=== PATIENT | male | born 1985 | race Caucasian/White ===

== ENCOUNTER 2019-03-30 08:48 | Inpatient (IN) | payer MEDICAID ==
[~2019-03-30] VITALS: Ht 175.3 cm; Wt 98.9 kg
--- NOTE | 2019-03-30 08:50 | NUR ---
PT BIBRA 89 FROM HOME C/O HEADACHE, CONFUSION, AND NEAT SYNCOPE, PER PT LAST KNOWN WELL IS AROUND 8AM, PT IS AAOX4, NOT IN RESPIRATORY DISTRESS ,HOOKED TO MONITOR, KEPT RESTED AND COMFORTABLE, WILL CONTINUE TO MONITOR.
--- NOTE | 2019-03-30 08:52 | NUR ---
AT BEDSIDE FOR EVAL.
[2019-03-30] MEDS ORDERED: IV NS 0.9% 1,000 ML BAG IV ONE ×2 (09:00→11:00)
--- NOTE | 2019-03-30 09:00 | NUR ---
PT IV LINE ESTABLISHED, BLOOD DRAWN AND SENT TO LAB.
--- NOTE | 2019-03-30 09:01 | NUR ---
wheeled patient to ct
[2019-03-30] MEDS ORDERED: IOHEXOL-350 100 ML VIAL IV ONE (09:02)
[2019-03-30 09:05] LABS: BASOPHILS % (AUTO) 0.8 % (0.0-2.0); EOSINOPHILS % (AUTO) 1.1 % (0.0-6.0); HEMATOCRIT 46 % (39-51); HEMOGLOBIN 15.5 g/dL (13.5-17.5); LYMPHOCYTES # (AUTO) 0.4 /CMM (0.8-4.8); LYMPHOCYTES % (AUTO) 7.4 % (20.0-44.0); MEAN CORPUSCULAR HGB CONC 34 g/dl (31.0-36.0); MEAN CORPUSCULAR VOLUME 86 fL (80-96); MONOCYTES # (AUTO) 1.3 /CMM (0.1-1.30); MONOCYTES % (AUTO) 24.7 % (2.0-12.0); NEUTROPHILS # (AUTO) 3.5 /CMM (1.8-8.9); PLATELET COUNT (AUTO) 169 /CMM (150-450); RED BLOOD CELL COUNT(AUTO) 5.31 MIL/uL (4.5-6.0); WHITE BLOOD COUNT (AUTO) 5.4 K/uL (4.3-11.0)
--- NOTE | 2019-03-30 09:08 | NUR ---
RECEIVED A CALL FROM DR. ORTEGA NEUROLOGIST
[2019-03-30 09:11] LABS: CALCIUM, SERUM 9.4 mg/dL (8.5-10.1); CARBON DIOXIDE 26 mmol/L (21-32); CHLORIDE 98 mmol/L (98-107); CREATININE 1.1 mg/dL (0.6-1.3); GLUCOSE 112 mg/dL (74-106); POTASSIUM 4.1 mmol/L (3.5-5.1); SODIUM SERUM 135 mmol/L (136-145); UREA NITROGEN, BLOOD 13 mg/dL (7-18)
[2019-03-30 09:27] LABS: BAND % (MANUAL) 2 % (0.0-5.0); LYMPHOCYTES % (MANUAL) 7 % (16-48); MONOCYTES % (MANUAL) 27 % (0-11.0); NEUTROPHILS % (MANUAL) 64 (42-76)
[2019-03-30 09:30] LABS: CHOLESTEROL 269 mg/dL (<200); HDL CHOLESTEROL 41 mg/dL (40-60); LDL 185 mg/dL (0-99); TRIGLYCERIDES 170 mg/dL (30-150)
--- NOTE | 2019-03-30 09:35 | NUR ---
PT IS BACK FROM THE CT SCAN.
--- NOTE | 2019-03-30 09:35 | NUR ---
TELE NEURO AT BEDSIDE FOR EVAL.
[2019-03-30] MEDS ORDERED: METOCLOPRAMIDE HCL 10 MG/2 ML VIAL ONE (10:38)
[2019-03-30] MEDS ORDERED: ASPIRIN 325 MG TABLET ONE (10:38)
[2019-03-30] MEDS ORDERED: ASPIRIN 325 MG TABLET PO ONE (11:00)
[2019-03-30] MEDS ORDERED: METOCLOPRAMIDE HCL 10 MG/2 ML VIAL IV ONE (11:00)
[2019-03-30] MEDS ORDERED: BUTA1CAP46 PO (11:48)
[2019-03-30] MEDS ORDERED: AMIT25TA9 PO (11:48)
--- NOTE | 2019-03-30 12:34 | NUR ---
MOVE SHEET SUBMITTED. CALLED FOR TELE BED.
--- NOTE | 2019-03-30 13:36 | NUR ---
REPORT GIVEN TO OFE MCCLURE FOR KATARZYNA.
--- NOTE | 2019-03-30 13:55 | NUR ---
Tele/RN new admission Patient arrived room 328-2 by amauri with staff from reported by Jeff THAKUR. patient AO x 4, able to response all stimuli. Admitting Dx: CVA, patient able to move all extremities without pain or difficulty, symmetrical facial movement. Skin is warm to touch, intact IV site. Resp. even and unlabored in room air. Call light within reach, will continue to monitor. Addendum: 03/30/19 at 1746 by KAMI LAWRENCE RN Error
--- NOTE | 2019-03-30 13:55 | NUR ---
Tele/RN new admission Patient arrived room 328-2 on [facility] with staff from ER, report received by ER/Axi RN. patient AO x 4, able to response all stimuli. Admitting Dx: CVA, patient able to move all extremities without pain or difficulty, symmetrical facial movement. Skin is warm to touch, intact IV site. Resp. even and unlabored in room air. Call light within reach, will continue to monitor.
[2019-03-30] MEDS ORDERED: MAGNESIUM HYDROXIDE 30 ML UDC PO PRN (14:30)
[2019-03-30] MEDS ORDERED: ACETAMINOPHEN 325 MG TABLET PO PRN (14:30)
[2019-03-30] MEDS ORDERED: ONDANSETRON HCL/PF 4 MG/2 ML VIAL IVP PRN (14:30)
[2019-03-30] MEDS ORDERED: ZOLPIDEM TARTRATE 5 MG TABLET PO PRN (14:30)
[2019-03-30] MEDS ORDERED: MAG HYDROX/AL HYDROX/SIMETH 30 ML UDC PO PRN (14:30)
[2019-03-30] MEDS ORDERED: Z GUARD REMEDY 2 OZ OINT TP PRN (14:30)
[2019-03-30] MEDS: IV NS 0.9% 1,000 ML IV PRN (15:08)
[2019-03-30] MEDS: HYDROMORPHONE INJ 2 MG/ML DISP.SYRIN IV PRN ×2 (15:09→19:49)
--- NOTE | 2019-03-30 18:30 | NUR ---
Tele/RN Closing Note Patient is in bed comfortably, is at bed side. Skin is warm to touch, clean/dry, intact IV site, keep running NS at 75ml/hr for hydration. Respiratory even and unlabored with room air. Kept lower position of bed with elevated HOB. Call light within reach, will endorse hourly shift.
--- NOTE | 2019-03-30 19:30 | NUR ---
BRICK CLEANER OPENING NOTES RECEIVED PATIENT FROM MORNING SHIFT, ALERT AND ORIENTED X 3. VERBALLY RESPONSIVE AND ABLE TO FOLLOW DIRECTIONS. BREATHING REGULAR AND UNLABORED ON ROOM AIR. LEFT AND RIGHT AC G20 IV LINES INTACT AND PATENT, FLUSHING WELL WITH NO BLEEDING OR S/S OF INFILTRATION NOTED. BODY ASSESSMENT DONE, SKIN REMAINED INTACT CLEAN AND DRY. COMPLAINED OF 9/10 HEADACHE, NON-PHARMACOLOGICAL INTERVENTIONS PROVIDED. BED LOW AND LOCKED ON SEMI FOWLERS POSITION. CALL LIGHT IN REACH. WILL CONTINUE TO MONITOR.
[2019-03-30 20:00] VITALS: BP 167/94
--- NOTE | 2019-03-30 20:00 | NUR ---
CEMENT CONTRACTOR NOTES ON CARDIAC MONITORING WITH NSR AT 90bpm. COMPLAINED OF 9/10 HEADACHE, DILAUDID 1MG GIVEN VIA IV PUSH. NON-PHARMACOLOGICAL INTERVENTIONS PROVIDED. VITAL SIGN WNL. WILL CONTINUE TO MONITOR.
[2019-03-30] MEDS: AMITRIPTYLINE HCL 25 MG TABLET PO SCH (21:33)
[2019-03-30] MEDS: ATORVASTATIN 10 MG TABLET PO SCH (21:33)
[2019-03-30 22:00] VITALS: BP 167/94
[2019-03-30] MEDS ORDERED: hydrALAZINE HCL 25 MG TABLET PO PRN (22:00)
--- NOTE | 2019-03-30 22:00 | NUR ---
TRIMMER LOADER NOTES NOTED WITH BP OF 167/94, NOTIFIED WITH ORDERS TO GIVE HYDRALAZINE 25MG PO EVERY 6HRS PRN FOR BP>160, NOTED AND CARRIED OUT.
--- NOTE | 2019-03-30 23:30 | NUR ---
YARDING AND FOLDING MACHINE OPERATOR NOTES RECHECK BP 147/84 HR 95.
[2019-03-30] MEDS: HYDROCODONE/APAP 10/325MG 1 EA TABLET PO PRN (23:42)
--- NOTE | 2019-03-30 23:45 | NUR ---
LOGGER ALL ROUND NOTES COMPLAINED OF 7/10 HEADACHE, NORCO 10/325 GIVEN BY MOUTH. NON-PHARMACOLOGICAL INTERVENTIONS PROVIDED. VITAL SIGNS WNL. WILL CONTINUE TO MONITOR.
[2019-03-31] VITALS (7 sets, daily range): BP systolic 85–167; BP diastolic 46–99
[2019-03-31] MEDS: IV NS 0.9% 1,000 ML IV PRN ×2 (04:46→23:24)
[2019-03-31] MEDS: HYDROMORPHONE INJ 2 MG/ML DISP.SYRIN IV PRN ×3 (04:48→22:37)
--- NOTE | 2019-03-31 05:00 | NUR ---
SEAL SKINNER NOTES COMPLAINED OF 9/10 HEADACHE, DILAUDID 1MG GIVEN VIA IV PUSH. NON-PHARMACOLOGICAL INTERVENTIONS PROVIDED. VITAL SIGN WNL. WILL CONTINUE TO MONITOR.
--- NOTE | 2019-03-31 06:30 | NUR ---
PLATE DRILLER CLOSING NOTES PATIENT IN BED ALERT AND ORIENTED X 3. VERBALLY RESPONSIVE AND ABLE TO FOLLOW DIRECTIONS. BREATHING REGULAR AND UNLABORED ON ROOM AIR. LEFT AND RIGHT AC G20 IV LINES PATENT AND INFUSING WELL. MAINTAINED ON CARDIAC MONITORING WITH NSR AT 92bpm. ORTHOSTATIC BLOOD PRESSURES TAKEN AND DOCUMENTED. COMPLAINED OF 3/10 HEADACHE, NON-PHARMACOLOGICAL INTERVENTIONS PROVIDED. BED LOW AND LOCKED ON SEMI FOWLERS POSITION. CALL LIGHT IN REACH. WILL ENDORSE TO MORNING SHIFT FOR KATARZYNA.
[2019-03-31 07:07] LABS: BASOPHILS % (AUTO) 0.7 % (0.0-2.0); EOSINOPHILS % (AUTO) 0.3 % (0.0-6.0); HEMATOCRIT 42 % (39-51); HEMOGLOBIN 14.5 g/dL (13.5-17.5); LYMPHOCYTES % (AUTO) 19.8 % (20.0-44.0); MEAN CORPUSCULAR HGB CONC 35 g/dl (31.0-36.0); MEAN CORPUSCULAR VOLUME 85 fL (80-96); MONOCYTES # (AUTO) 1.6 /CMM (0.1-1.30); MONOCYTES % (AUTO) 31.1 % (2.0-12.0); NEUTROPHILS # (AUTO) 2.5 /CMM (1.8-8.9); NEUTROPHILS % (AUTO) 48.1 % (43.0-81.0); PLATELET COUNT (AUTO) 148 /CMM (150-450); RED BLOOD CELL COUNT(AUTO) 4.91 MIL/uL (4.5-6.0); WHITE BLOOD COUNT (AUTO) 5.3 K/uL (4.3-11.0)
--- NOTE | 2019-03-31 07:27 | NUR ---
MS RN NOTES RECEIVED PATIENT IN BED, AWAKE, A/O X4. PATIENT ON ROOM AIR BREATHING EVENLY WITH NO SIGNS OF SOB AT THIS MOMENT. PATIENT DENIES PAIN AT THIS TIME. ABLE TO VERBALIZE HIS NEEDS AND RESPONDS PROPERLY TO QUESTIONS ASKED. R AND L AC GAUGE # 20 PRESENT AND INTACT INFUSING NS AT 75 ML/HR. ALL SAFETY PRECAUTIONS IN PLACE; BED IN LOW POSITION AND LOCKED, RAILS UP X 2, CALL LIGHT WITHIN REACH. WILL CONTINUE TO MONITOR PATIENT.
[2019-03-31 08:31] LABS: CALCIUM, SERUM 8.3 mg/dL (8.5-10.1); CREATININE 1.2 mg/dL (0.6-1.3); MAGNESIUM 1.5 mg/dL (1.8-2.4); PHOSPHORUS 2.8 mg/dL (2.5-4.9); POTASSIUM 4.1 mmol/L (3.5-5.1)
[2019-03-31 08:46] LABS: BAND % (MANUAL) 1 % (0.0-5.0); LYMPHOCYTES % (MANUAL) 22 % (16-48); MONOCYTES % (MANUAL) 20 % (0-11.0); NEUTROPHILS % (MANUAL) 57 (42-76)
[2019-03-31] MEDS: ASPIRIN 81 MG TAB.CHEW PO SCH (08:47)
[2019-03-31] MEDS: LISINOPRIL (20MG) 20 MG TABLET PO SCH (08:48)
[2019-03-31] MEDS: AMLODIPINE BESYLATE 10 MG TABLET PO SCH (08:48)
[2019-03-31] MEDS: HYDROCODONE/APAP 10/325MG 1 EA TABLET PO PRN ×3 (08:59→20:18)
[2019-03-31] MEDS ORDERED: NAPROXEN 500 MG TABLET PO SCH (09:00)
[2019-03-31] MEDS ORDERED: methylPREDNISolone SOD SUCC 1,000 MG in IV NS 0.9% 250 ML IV ONE (09:00)
[2019-03-31] MEDS ORDERED: LISINOPRIL (20MG) 20 MG TABLET PO SCH (09:00)
[2019-03-31] MEDS: PANTOPRAZOLE 40 MG TABLET.DR PO SCH (09:26)
[2019-03-31] MEDS: NAPROXEN 250 MG TABLET PO SCH ×2 (10:40→17:25)
[2019-03-31] MEDS: Magnesium 1GM/D5W 100ML PREMIX 100 ML IV SCH ×2 (14:48→16:47)
--- NOTE | 2019-03-31 16:56 | NUR ---
DUPLICATING MACHINE SERVICER NOTES PATIENT IN BED, COMPLAINING OF HEADACHE ALL DAY. PRN PAIN MEDICATIONS NORCO HAS BEEN ADMINISTERED TWICE TODAY AND DILAUDID GIVEN 10 MIN AGO. WILL CONTINUE TO MONITOR PATIENT.
--- NOTE | 2019-03-31 18:59 | NUR ---
BROKER IN CHARGE CLOSING NOTES PATIENT IN BED AT THIS TIME, AWAKE, A/O X4 WITH PRESENT AT BEDSIDE. PATIENT ON ROOM AIR BREATHING EVENLY WITH NO SIGNS OF SOB AT THIS MOMENT. PATIENT WITH HEADACHES THROUGHOUT THE DAY. PRN PAIN MEDICATION ADMINISTERED. ABLE TO VERBALIZE HIS NEEDS AND RESPONDS PROPERLY TO QUESTIONS ASKED. RAC GAUGE # 20 PRESENT AND INTACT INFUSING NS AT 75 ML/HR. ALL NEEDS ATTENDED TOO THROUGHOUT THE DAY. SAFETY PRECAUTIONS IN PLACE; BED IN LOW POSITION AND LOCKED, RAILS UP X 2, SEIZURE PRECAUTION APPLIED, CALL LIGHT WITHIN REACH. WILL CONTINUE TO MONITOR PATIENT.
--- NOTE | 2019-03-31 19:58 | NUR ---
TELE/RN OPENING NOTES RECEIVED PATIENT IN BED, AWAKE, ALERT, X3, ABLE TO VERBALIZE NEEDS, ABLE TO AMBULATE , WITH LEFT SIDED WEAKNESS. RESPIRATIONS EVEN AND UNLABORED, BED LOCKED, CALL LIGHTS WITHIN REACH. ABLE TO VERBALIZE NEEDS, SELF MOTIVATED, ON IV FLUIDS, IV SITE ON RIGHT AC PATENT WILL MONITOR. BED LOCKED, AGUSTINA LIGHTS WITHIN REACH. RECEIVED ENDORSEMENT FROM AM RN FOR KATARZYNA.
--- NOTE | 2019-03-31 20:21 | NUR ---
TELE/RN NOTES BREAK THROUGH PAIN GIVEN NEEDED NORCO 10-325 MG PO GIVEN PATIENT ABLE TO SWALLOW, ALERT ORIENTED, TOLERATED MEDS.
[2019-03-31] MEDS: ATORVASTATIN 10 MG TABLET PO SCH (22:22)
[2019-03-31] MEDS: AMITRIPTYLINE HCL 25 MG TABLET PO SCH (22:22)
--- NOTE | 2019-03-31 23:34 | NUR ---
TELE/RN NOTES DILAUDID IVP 05.ML ADMINISTERED, TOLERATED.
[2019-04-01] VITALS (7 sets, daily range): BP systolic 101–137; BP diastolic 52–82
[2019-04-01] MEDS: HYDROCODONE/APAP 10/325MG 1 EA TABLET PO PRN ×2 (04:19→11:22)
--- NOTE | 2019-04-01 04:21 | NUR ---
tele/rn notes patient reported pain requested prn norco 10-325 mg po will monitor.
--- NOTE | 2019-04-01 06:49 | NUR ---
328-1 TELE/RN CLOSING NOTES PATIENT ABLE TO SLEEP DURING THE NIGHT, RESPIRATIONS EVEN AND UNLABORED, WITH PAIN MANAGEMENT, KEPT COMFORTABLE. ABLE TO DO SELF CARE, INSTRUCTED TO CALL FOR ASSISTANCE. ODETTE LOCKED, CALL LIGHTS WITHIN REACH. WILL MONITOR.
[2019-04-01 07:14] LABS: CALCIUM, SERUM 8.9 mg/dL (8.5-10.1); CREATININE 0.9 mg/dL (0.6-1.3); MAGNESIUM 2.2 mg/dL (1.8-2.4); POTASSIUM 4.5 mmol/L (3.5-5.1)
[2019-04-01] MEDS: HYDROMORPHONE INJ 2 MG/ML DISP.SYRIN IV PRN ×2 (07:50→13:30)
--- NOTE | 2019-04-01 08:00 | NUR ---
SWITCHMAN OPENING NOTES Received Patient awake and resting in bed. A/O x 4. VS stable with no acute distress. Breathing even and unlabored on room air with no respiratory distress. Patient stated pain level of 10/10 headache and left elbow pain. Administered Dilaudid 1mg IV per Patients request. Will continue to monitor. Telemonitor in place and patent reading SR with HR-74. 20g PIV on RAC clean, intact, patent and flushing well with NS infusing at 75ml/hr. Safety precautions in place. Bed locked and set to lowest position with side rails x 2 up. All needs rendered at this time. Call light within reach. Will continue to monitor.
[2019-04-01] MEDS: ASPIRIN 81 MG TAB.CHEW PO SCH (09:02)
[2019-04-01] MEDS: PANTOPRAZOLE 40 MG TABLET.DR PO SCH (09:02)
[2019-04-01] MEDS: NAPROXEN 250 MG TABLET PO SCH (09:04)
[2019-04-01] MEDS: AMLODIPINE BESYLATE 10 MG TABLET PO SCH (09:04)
[2019-04-01] MEDS: LISINOPRIL (20MG) 20 MG TABLET PO SCH (09:04)
[2019-04-01] MEDS ORDERED: VALPROATE 1,000 MG in IV NS 0.9% 100 ML IV ONE (11:30)
--- NOTE | 2019-04-01 12:09 | NUR ---
Social service consult requested by MD for post stroke protocol. Per chart review and MD notes, pt is a 33-year-old male patient presented to the emergency department via EMS; his coworker called 911 after he was complaining of severe headache with syncopal event while at work. GRAPHIC USER INTERFACE DESIGNER met with the pt bedside. GRAPHIC USER INTERFACE DESIGNER introduced self, explained role of SW and purpose of visit. On assessment, pt is alert and awake x4. Pt's mood is congruent. Pt. reports history of hemorrhagic stroke 4 years ago with no neuro deficit. Pt lives with his and six children in [place]. Pt. dneis any depression or psychiatric diagnoses. Pt. deneis SI/HI and visual/auditory hallucinations. Pt states, he is ready to be discharged and go home. Pt. is awaiting neuro clearance. Pt has good family support. 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 Pt drinks alcohol (beer) socially and smokes marijuana daily. Pt denies any other drug use. No other social service needs are requested at this time. GRAPHIC USER INTERFACE DESIGNER is available, if needed.
[2019-04-01] MEDS ORDERED: ASPI-605 PO (13:51)
[2019-04-01] MEDS ORDERED: DIVA500T2 PO (13:51)
[2019-04-01] MEDS ORDERED: OXYC-133 PO (13:51)
[2019-04-01] MEDS ORDERED: LISI40TA4 PO (13:51)
[2019-04-01] MEDS ORDERED: ATOR20TA PO (13:51)
[2019-04-01] MEDS ORDERED: AMLO10TA4 PO (13:51)
--- NOTE | 2019-04-01 15:38 | NUR ---
MS CARBON PAPER COATING MACHINE SETTER NOTES Patient discharged for home at this time. Patient in stable condition. VS stable with no acute distress. Breathing even and unlabored on room air with no respiratory distress. Denies pain. Skin intact. Medication reconciliation and discharge orders reviewed and explained to Patient and . Patient and verbalized understanding. All belongings with Patient. Patient will follow up with neurologist in 1 week. Escorted Patient to the [facility] for safety. Patient picked up by damon Landin.
[2019-04-01] MEDS ORDERED: DIVALPROEX SODIUM 500 MG TABLET.DR PO SCH (21:00)
== END 2019-04-01 15:40 | disposition home or self-care (01) | DRG 53 ==
LOC: ER 08:52 → TELE 13:53 → MED 03-31 08:33 → TELE 03-31 08:54 → MED 04-01 08:58
PROVIDERS: ADMIT Nurse Practitioner Acute Care; ATTEND Nurse Practitioner Acute Care
DX: R56.9 Unspecified convulsions (principal); E66.9 Obesity, unspecified; I16.0 Hypertensive urgency; R55 Syncope and collapse; E78.5 Hyperlipidemia, unspecified; S53.402A Unspecified sprain of left elbow, initial encounter; W18.30XA Fall on same level, unspecified, initial encounter; Y92.89 Other specified places as the place of occurrence of the external cause; G43.909 Migraine, unspecified, not intractable, without status migrainosus; I10 Essential (primary) hypertension; Z79.899 Other long term (current) drug therapy; F12.90 Cannabis use, unspecified, uncomplicated; Z86.73 Personal history of transient ischemic attack (TIA), and cerebral infarction without residual deficits; Z68.32 Body mass index [BMI] 32.0-32.9, adult
CPT/HCPCS: 36415; 70450-TC; 70496-TC; 70498-TC; 71045-TC; 73080-TC; 80048-TC; 80061-TC; 82962-TC; 83735-TC; 84100-TC; 84484-TC; 85025-TC; 85730-TC; 87081-TC; 92611-TC; 93307-TC; 95819-TC; 97116-TC; 97530-TC; A4216; G0378; J1170; J2765; J2930; J3475; J3490; J7030; J7050; Q9967